=== PATIENT | female | born 1985 | race Two or more races ===

== ENCOUNTER 2022-12-31 22:14 | Emergency (ER) | payer OTHER ==
[~2022-12-31] VITALS: Ht 170.2 cm; Wt 68.0 kg
[2022-12-31] MEDS ORDERED: IV NORMAL SALINE 1000 ML BAG IV ONE (22:30)
[2022-12-31] MEDS ORDERED: NALOXONE HCL 0.4 MG/ML AMPUL IV ONE (22:30)
[2022-12-31] MEDS ORDERED: THIAMINE HCL 100 MG TABLET PO ONE (22:45)
[2023-01-01 01:13] LABS: HEMATOCRIT 35.9 % (31.2-41.9); MEAN CORPUSCULAR HEMOGLOBIN 27.3 uug (24.7-32.8); MEAN CORPUSCULAR VOLUME 82.5 fL (75.5-95.3); PLATELET COUNT (AUTO) 227 K/uL (179-408)
[2023-01-01] MEDS ORDERED: NALOXONE HCL 0.4 MG/ML AMPUL ONE (01:15)
[2023-01-01] MEDS ORDERED: THIAMINE HCL 100 MG TABLET ONE (01:15)
[2023-01-01 01:23] LABS: CARBON DIOXIDE 29 mmol/L (21-32); CHLORIDE 105 mmol/L (98-107); CREATININE 0.7 mg/dL (0.6-1.3); GLUCOSE 110 mg/dL (74-106); POTASSIUM 3.7 mmol/L (3.5-5.1); UREA NITROGEN, BLOOD 14 mg/dL (7-18)
[2023-01-01 01:27] LABS: ETHANOL < 3 MG/DL (0-0)
[2023-01-01 01:28] LABS: ALANINE AMINOTRANSFERASE 27 U/L (14-59); ALKALINE PHOSPHATASE 81 U/L (50-136); ASPARTATE AMINOTRANSFERASE 17 U/L (15-37); BILIRUBIN,DIRECT 0.1 mg/dL (0.0-0.2); BILIRUBIN,TOTAL 0.3 mg/dL (0.2-1.0); TOTAL PROTEIN, SERUM 6.6 g/dL (6.4-8.2)
[2023-01-01 01:29] LABS: ACETAMINOPHEN < 2.0 ug/mL (10-30)
[2023-01-01] MEDS: NALOXONE HCL 0.4 MG/ML AMPUL IM ONE (02:00)
[2023-01-01 03:56] LABS: *BILIRUBIN,URIN NEGATIVE (NEGATIVE); *BLOOD, URINE NEGATIVE (NEGATIVE); *COLOR,URINE YELLOW (YELLOW); *KETONES,URINE NEGATIVE (NEGATIVE); *UROBILINOGEN,URINE 0.2 E.U./dl (NORMAL); LEUKOCYTE ESTERASE ,URINE TRACE (NEGATIVE); NITRITE, URINE NEGATIVE (NEGATIVE); UGLUCOSE NEGATIVE (NEGATIVE)
[2023-01-01 03:57] LABS: *CLARITY,URINE SLIGHTLY CLOUDY (CLEAR)
[2023-01-01 03:58] LABS: BACTERIA,URINE MODERATE /HPF (NONE SEEN); RBC,URINE 0-3 /HPF (0-3); SQUAMOUS EPITHELIAL CELL,UR MODERATE /HPF (NONE SEEN)
[2023-01-01 04:11] LABS: *AMPHETAMINE, URINE POSITIVE (NEGATIVE); *CANNABINOID, URINE POSITIVE (NEGATIVE); *COCCAINE, URINE NEGATIVE (NEGATIVE); *PHENCYCLIDINE SCREEN,URINE NEGATIVE (NEGATIVE)
--- NOTE | 2023-01-01 06:22 | NUR ---
Patient appears to be very sleepy but in stable condition no distress noted.
--- NOTE | 2023-01-01 08:30 | NUR ---
Pt is awake and alert, ambulated to restroom with steady gait.
--- NOTE | 2023-01-01 08:41 | NUR ---
Social Work consult was requested for a patient in the emergency room for homeless and substance abuse resources. Patient is a 37-year-old white female. Patient is alert and oriented X3. Patient presents with anxious mood and congruent affect. Patient states she does not have a primary automotive parts person. Patient states she is homeless, and MISSY provided the patient with homeless resources for [facility] [address] [place] [address] ([phone]) and [facility] [address] [facility] [address] ([phone]). MISSY gave resources for [facility] [address] [facility] [address]. Patient signed the homeless waiver, and a copy was placed in the chart. Patient states she has a history of substance abuse, and the toxicology report was positive for amphetamines and cannabinoids. MISSY provided the patient with substance abuse resources for [facility] [address] [facility] [address] ([phone]), [facility] [address] [facility] [address] ([phone]), and [facility] [address] [facility] [address] ([phone]). Patient appears unmotivated for treatment. Patient denies a history of psychiatric diagnosis and denies suicidal or homicidal ideation. MISSY provided the patient with the mental health resource for [facility] [address] [place] [address] ([phone]). Patients plan for discharge is to follow up with making her own arrangements for a living arrangement using the resources provided. MISSY provided the patient with a clean shirt, shoes, and a TAP card for discharge.
--- NOTE | 2023-01-01 09:00 | NUR ---
Pt ate breakfast and was seen by social media marketing manager and given referrals.
--- NOTE | 2023-01-01 09:05 | NUR ---
IV removed. Catheter intact and site benign. Pressure and 4x4 gauze applied to site. No bleeding noted.
--- NOTE | 2023-01-01 09:09 | NUR ---
Patient discharged to home in stable condition. Written and verbal after care instructions given. Patient verbalizes understanding of instructions. Stressed follow up or return to ER for worsening s/s.
== END 2023-01-01 09:10 | disposition home or self-care (01) ==
LOC: ER 22:14
DX: R40.4 Transient alteration of awareness (principal); Z59.00 Homelessness unspecified
CPT/HCPCS: 36415; 99284; 96361; 96374; 96372; 80307; 80076; 80048; 81001; 85025; 87040; 80299; 80320; J2310; J7040; C1758; G0480

== ENCOUNTER 2023-01-01 23:22 | Emergency (ER) | payer OTHER ==
[~2023-01-01] VITALS: Ht 170.2 cm; Wt 63.5 kg
--- NOTE | 2023-01-01 23:59 | NUR ---
Patient ambulated to room #3, awaiting MD exam, informed of plan of care, no s/s of any distress noted at this time. Will continue to monitor.
[2023-01-02] MEDS ORDERED: OXYCODONE/APAP 5-325 MG TABLET PO ONE
[2023-01-02] MEDS ORDERED: ONDANSETRON ODT 4 MG TAB.RAPDIS SL ONE
[2023-01-02] MEDS ORDERED: OXYCODONE/APAP 5-325 MG TABLET ONE (00:05)
[2023-01-02] MEDS ORDERED: ONDANSETRON ODT 4 MG TAB.RAPDIS ONE (00:05)
--- NOTE | 2023-01-02 00:12 | NUR ---
Medicated as per order for c/o pain then to CT via wheel chair.
--- NOTE | 2023-01-02 00:27 | NUR ---
Ambulated to bathroom, aware of need for urine specimen.
--- NOTE | 2023-01-02 01:18 | NUR ---
Patient sleeping at this time, remains easy to arouse, no change in prior assessment.
--- NOTE | 2023-01-02 02:47 | NUR ---
PATIENT SLEEPING AT THIS TIME, NO S/S OF ANY DISTRESS NOTED.
--- NOTE | 2023-01-02 03:52 | NUR ---
Patient continues to sleep, no s/s of any distress noted.
--- NOTE | 2023-01-02 04:47 | NUR ---
Patient awake, ambulated to bathroom and back to bed.No change in primary assessment.
[2023-01-02 06:12] LABS: *URINE HCG, QUAL NEGATIVE (NEGATIVE)
--- NOTE | 2023-01-02 06:44 | NUR ---
patient given ACI, remains stable for discharge.
[2023-01-02 06:45] VITALS: BP 133/91
== END 2023-01-02 06:46 | disposition home or self-care (01) ==
LOC: ER 23:29
DX: R51.9 Headache, unspecified (principal); G89.29 Other chronic pain; M54.2 Cervicalgia; F15.10 Other stimulant abuse, uncomplicated; Z59.00 Homelessness unspecified; Z88.0 Allergy status to penicillin
CPT/HCPCS: 70450; 72125; 84703; A4663; Q0162